=== PATIENT | male | born 1965 | race Caucasian/White ===

== ENCOUNTER 2017-08-31 00:09 | Emergency (ER) | payer BC, OTHER ==
[2017-08-31 00:25] VITALS: BP 156/92; PULSE 72; TEMP 97.9; BMI 27.0
--- NOTE | 2017-08-31 00:28 | PDOC ---
History of Present Illness - General History Source: Patient Exam Limitations: No Limitations - History of Present Illness Initial Comments: 08/31/17 00:45 The patient is a 52 year old male with no significant past medical history presents to the emergency department s/p a fall yesterday. The patient reports he was at work yesterday, around afternoon he fell on his right knee, originally there was no pain or discomfort. The patient reports progressively pain and swelling manifested and got worse. The pain reports localized pain to the right knee, able to ambulate on his knee. Denies any numbness, tingling, weakness or loss of sensation. Denies any fever, chills, nausea, vomiting. Denies any diarrhea or constipation. Denies any dysuria, hematuria, frequency or urgency to urinate. Allergies: NKDA Social history: Patient reports history of smoking and use of alcohol. Surgical history: HERNIA REPAIR PCP: Dr. Ludwin Avila. <Lucy Bello - Last Filed: 08/31/17 00:44> - General History Source: Patient <Filippo Doe - Last Filed: 08/31/17 01:12> - General Chief Complaint: Pain, Acute Stated Complaint: FALL/RT KNEE PAIN Time Seen by Provider: 08/31/17 00:26 Past History <Lucy Bello - Last Filed: 08/31/17 00:44> - Past Medical History COPD: No - Surgical History Abdominal Surgery: Yes (HERNIA REPAIR) - Suicide/Smoking/Psychosocial Hx Smoking Status: Yes Smoking History: Never smoked Number of Cigarettes Smoked Daily: 2 Hx Alcohol Use: Yes (CASUAL.) Substance Use Type: Alcohol <Filippo Doe - Last Filed: 08/31/17 01:12> - Past Medical History Allergies/Adverse Reactions: Allergies Allergy/AdvReac Type Severity Reaction Status Date / Time No Known Allergies Allergy Verified 08/31/17 00:24 Home Medications: Ambulatory Orders No Home Medications 0 dose .ROUTE UTDICT 10/28/12 Review of Systems - Review of Systems Able to Perform ROS?: Yes Comments:: 08/31/17 00:43 CONSTITUTIONAL: Absent: fever, chills, diaphoresis, generalized weakness, malaise, loss of appetite HEENT: Absent: rhinorrhea, nasal congestion, throat pain, throat swelling, difficulty swallowing, mouth swelling, ear pain, eye pain, visual Changes CARDIOVASCULAR: Absent: chest pain, syncope, palpitations, irregular heart rate, lightheadedness , peripheral edema RESPIRATORY: Absent: cough, shortness of breath, dyspnea with exertion, orthopnea, wheezing, stridor, hemoptysis GASTROINTESTINAL: Absent: abdominal pain, abdominal distension, nausea, vomiting, diarrhea, constipation, melena, hematochezia GENITOURINARY: Absent: dysuria, frequency, urgency, hesitancy, hematuria, flank pain, genital pain MUSCULOSKELETAL: (+) Right knee pain and swelling. Absent: myalgia, arthralgia, SKIN: Absent: rash, itching, pallor HEMATOLOGIC/IMMUNOLOGIC: Absent: easy bleeding, easy bruising, lymphadenopathy, frequent infections ENDOCRINE: Absent: unexplained weight gain, unexplained weight loss, heat intolerance, cold intolerance NEUROLOGIC: Absent: headache, focal weakness or paresthesias, dizziness, unsteady gait, seizure, mental status changes, bladder or bowel incontinence PSYCHIATRIC: Absent: anxiety, depression, suicidal or homicidal ideation, hallucinations. <Lucy Bello - Last Filed: 08/31/17 00:44> *Physical Exam - Vital Signs Last Vital Signs Temp Pulse Resp BP Pulse Ox 97.9 F 72 18 156/92 98 08/31/17 00:24 08/31/17 00:24 08/31/17 00:24 08/31/17 00:24 08/31/17 00:24 - Physical Exam Comments: 08/31/17 00:42 GENERAL: Well developed, well nourished. Awake and alert. No acute distress. HEENT: Normocephalic, atraumatic. PERRLA, EOMI. No conjunctival pallor. Sclera are non- icteric. Moist mucous membranes. Oropharynx is clear. NECK: Supple. Full ROM. No JVD. Carotid pulses 2+ and symmetric, without bruits. No thyromegaly. No lymphadenopathy. CARDIOVASCULAR: Regular rate and rhythm. No murmurs, rubs, or gallops. Distal pulses are 2+ and symmetric. PULMONARY: No evidence of respiratory distress. Lungs clear to auscultation bilaterally. No wheezing, rales or rhonchi. ABDOMINAL: Soft. Non-tender. Non-distended. No rebound or guarding. No organomegaly. Normoactive bowel sounds. MUSCULOSKELETAL Normal range of motion at all joints. No bony deformities or tenderness. No CVA tenderness. EXTREMITIES: (+) Mild swelling to the patellar region of the right knee. Good ROM. No ligamentous laxity. No cyanosis. No clubbing. No calf tenderness. SKIN: Warm and dry. Normal capillary refill. No rashes. No jaundice. NEUROLOGICAL: Alert, awake, appropriate. Cranial nerves 2-12 intact. No deficits to light touch and temperature in face, upper extremities and lower extremities. No motor deficits in the in face, upper extremities and lower extremities. Normoreflexic in the upper and lower extremities. Normal speech. Toes are down- going bilaterally. Gait is normal without ataxia. PSYCHIATRIC: Cooperative. Good eye contact. Appropriate mood and affect. <Lucy Bello - Last Filed: 08/31/17 00:44> - Vital Signs Last Vital Signs Temp Pulse Resp BP Pulse Ox 97.9 F 72 18 156/92 98 08/31/17 00:24 08/31/17 00:24 08/31/17 00:24 08/31/17 00:24 08/31/17 00:24 <Filippo Doe - Last Filed: 08/31/17 01:12> Medical Decision Making - Medical Decision Making 08/31/17 00:45 Documentation prepared by Lucy Bello, acting as medical claims specialist for Filippo Doe DO <Lucy Bello - Last Filed: 08/31/17 00:44> - Medical Decision Making 08/31/17 01:11 Dr. Doe: The scribe's documentation has been prepared under my direction and personally reviewed by me in its entirery. I confirm that the note above accurately reflects all work, treatment, procedures, and medical decision making performed by me. <Filippo Doe - Last Filed: 08/31/17 01:12> *DC/Admit/Observation/Transfer <Lucy Bello - Last Filed: 08/31/17 00:44> - Discharge Dispostion Decision to Admit order: No <Filippo Doe - Last Filed: 08/31/17 01:12> Diagnosis at time of Disposition: Right knee sprain Qualifiers: Encounter type: initial encounter Involved ligament of knee: unspecified ligament Qualified Code(s): S83.91XA - Sprain of unspecified site of right knee , initial encounter - Discharge Dispostion Disposition: HOME Condition at time of disposition: Stable - Referrals Referrals: Ludwin Avila MD [Primary Care Provider] - Favian Baugh MD [Staff Physician] - Rashad Rueda MD [Staff Physician] - - Patient Instructions Printed Discharge Instructions: DI for Knee Sprain Additional Instructions: REst, Ice, elevate right leg. Motrin for pain. Follow up with the orthopedists referred to you if pain doesn't improve - Post Discharge Activity Forms/Work/School Notes: Back to Work
== END 2017-08-31 01:44 | disposition home or self-care (01) ==
LOC: JER 00:09
DX: S83.8X1A Sprain of other specified parts of right knee, initial encounter (principal); W19.XXXA Unspecified fall, initial encounter; Y93.89 Activity, other specified; Y92.69 Other specified industrial and construction area as the place of occurrence of the external cause; Y99.0 Civilian activity done for income or pay
CPT/HCPCS: 73562-TC-RT-FY; 99282-25

== ENCOUNTER 2019-06-12 09:26 | Day surgery (SDC) | payer OTHER ==
[2019-06-05 17:13] VITALS: BMI 25.0
[2019-06-12] MEDS ORDERED: LIDOCAINE HCL/PF 2% SDV 5ML VIAL ONE (10:58)
[2019-06-12] MEDS ORDERED: PROPOFOL 20 ML ONE ×2 (10:58)
[2019-06-12 11:50] VITALS: BP 120/73; PULSE 74; TEMP 98
== END 2019-06-12 11:51 | disposition home or self-care (01) ==
LOC: FASU-ENDO 09:26
PROVIDERS: ATTEND Internal Medicine Gastroenterology
PROC: 0DJD8ZZ Inspection of Lower Intestinal Tract, Via Natural or Artificial Opening Endoscopic (ICD-10-PCS; principal; 2019-06-12 11:04)
DX: Z12.11 Encounter for screening for malignant neoplasm of colon (principal); K64.1 Second degree hemorrhoids

== ENCOUNTER 2024-04-19 14:46 | Emergency (ER) | payer OTHER ==
[2024-04-19 15:09] VITALS: RESP 16; BMI 27.5
[2024-04-19 16:40] LABS: BASO % 0.8 % (0-2.0); EOS % 2.4 % (0-4.5); HEMATOCRIT 47.7 % (35.4-49); HEMOGLOBIN 16.4 GM/dL (11.7-16.9); LYMPH % 25.9 % (8-40); MCH 30.5 pg (25.7-33.7); MCHC 34.4 g/dl (32.0-35.9); MEAN CELL VOLUME 88.5 fl (80-96); MEAN PLT VOLUME 7.8 fl (7.5-11.1); MONO % 9.2 % (3.8-10.2); NEUT % 61.7 % (42.8-82.8); PLATELET COUNT 233 10^3/uL (134-434); RBC 5.39 M/mm3 (4.00-5.60); RDW 13.5 % (11.9-15.9); WHITE BLOOD COUNT 9.9 K/mm3 (4.0-10.0)
[2024-04-19 17:05] LABS: POTASSIUM 4.2 mmol/L (3.5-5.1)
[2024-04-19 17:07] LABS: ALBUMIN 4.1 g/dl (3.4-5.0); CALCIUM 9.7 mg/dL (8.5-10.1)
[2024-04-19 17:08] LABS: BLOOD UREA NITROGEN 15.3 mg/dL (7-18)
[2024-04-19 17:11] LABS: CREATININE 0.9 mg/dL (0.55-1.3)
[2024-04-19 17:12] LABS: BILIRUBIN,TOTAL 0.9 mg/dL (0.2-1)
[2024-04-19 17:18] LABS: ERYTHROCYTE SEDIMENTATION RATE 15 mm/hr (0-20)
[2024-04-19 18:47] VITALS: BP 134/92; PULSE 76; TEMP 98.7
[2024-04-19 18:53] LABS: HIV INTERPRETATION NEGATIVE (NEGATIVE)
== END 2024-04-19 18:48 | disposition home or self-care (01) ==
LOC: JERFT 14:46
PROC: 2W3DX1Z Immobilization of Left Lower Arm using Splint (ICD-10-PCS; principal; 2024-04-19)
DX: M25.532 Pain in left wrist (principal); M79.89 Other specified soft tissue disorders
CPT/HCPCS: 36415; 73110-TC-LT-FY; 73130-TC-LT-FY; 80053; 85025; 85651; 86140; 86803; 87389; 99284-25